=== PATIENT | male | born 1985 | race African-American/Black ===

== ENCOUNTER 2017-05-17 12:53 | Day surgery (SDC) | payer OTHER ==
[~2017-05-17] VITALS: Ht 170.2 cm; Wt 95.0 kg
[~2017-05-17 12:53] MED LIST: BALANCED SALT IRRIG SOLN 15ML ONE; BUPIVACAINE HCL/PF 0.75% (7.5MG/ML) 10ML ONE; CIPROFLOXACIN 0.3% OPHTH SOLN 2.5ML ONE; LIDOCAINE HCL 2%/EPINEPHRINE 1:100,000 20 ML VIAL INFIL ONE; LIDOCAINE HCL/PF 2% 20 MG/ML 10ML VIAL ONE; NEO/POLYMYX B SULF/DEXAMETH OPHTH OINT 3.5GM ONE; PREDNISOLONE ACETATE 1% OPHTH DROPS 1ML ONE; TETRACAINE 0.5% OPHTH DROPS 4ML ONE
[2017-05-17 15:10] LABS: BASOPHILS % 0.5 % (0.0-2.0); EOSINOPHILS % 2.2 % (0.0-5.0); HEMATOCRIT. 48.7 % (42.0-52.0); HEMOGLOBIN. 16.5 g/dL (14.0-18.0); LYMPHOCYTES % 24.2 % (20.0-50.0); MEAN CORPUSCULAR HEMOGLOBIN 31.6 pg (28.0-32.0); MEAN CORPUSCULAR VOLUME 93.3 fL (80.0-94.0); MEAN PLATELET VOLUME 7.2 fl (7.4-10.4); MONOCYTES % 7.8 % (2.0-8.0); NEUTROPHILS % 65.3 % (40.0-76.0); PLATELET 263 x1000/uL (130-400); RED BLOOD CELL COUNT 5.22 mill/uL (4.7-6.1); RED CELL DISTRIBUTION WIDTH 13.4 % (11.6-14.6)
[2017-05-17 15:18] LABS: PROTHROMBIN TIME 10.8 sec (9.4-11.6)
[2017-05-17 15:21] LABS: CARBON DIOXIDE 25 mEq/L (21-32); CHLORIDE 107 mEq/L (98-107)
[2017-05-17] MEDS ORDERED: HYALURONATE SODIUM 14 MG/ML 0.85ML SYRINGE IO ONE (16:21)
[2017-05-17 16:44] VITALS: BP 124/77
[2017-05-17] MEDS ORDERED: TRIAMCINOLONE ACETONIDE 40MG/ML 1ML VIAL ONE (17:01)
[2017-05-17] MEDS ORDERED: FENTANYL CITRATE/PF 50MCG/ML 2ML VIAL ONE (17:35)
[2017-05-17] MEDS ORDERED: LIDOCAINE HCL/PF 1% 10 MG/ML 5ML VIAL ONE (17:36)
[2017-05-17] MEDS ORDERED: MIDAZOLAM HCL 2 MG/2 ML VIAL ONE (17:36)
[2017-05-17] MEDS ORDERED: PROPOFOL 200MG/20ML VIAL IV ONE (17:36)
[2017-05-17] MEDS ORDERED: DIPHENHYDRAMINE 50MG/ML VIAL ONE (17:36)
[2017-05-17] MEDS ORDERED: SODIUM CHLORIDE 0.9% 10ML VIAL ONE (17:46)
[2017-05-17] MEDS ORDERED: CEFAZOLIN SODIUM 1000MG/VIAL ONE (17:46)
[2017-05-17] MEDS ORDERED: ONDANSETRON HCL 4MG/2ML VIAL ONE (18:11)
== END 2017-05-17 19:50 | disposition home or self-care (01) ==
LOC: ER 14:10 → OR 17:22 → CANBEDREQ 22:35
PROVIDERS: ATTEND Ophthalmology
DX: H40.10X0 Unspecified open-angle glaucoma, stage unspecified (principal); R79.1 Abnormal coagulation profile
CPT/HCPCS: 36415; 66183; 80053; 85025; 85610; 93005; 99285; A4216; C1783; J0690; J1200; J2250; J2405; J3010; J3301; J3490; J2704

== ENCOUNTER → 2017-07-23 | Day surgery (SDC) | payer OTHER ==
[~2017-07-23] VITALS: Ht 172.7 cm; Wt 93.0 kg
[~2017-07-23] MED LIST changes: +AZOPT RIGHTEYE; +BRIM10DR2 RIGHTEYE; +FENTANYL CITRATE/PF 50MCG/ML 2ML VIAL ONE; +HYALURONATE SODIUM 14 MG/ML 0.85ML SYRINGE IO ONE; +HYDROMORPHONE HCL/PF 2MG/ML CPJ IV PRN; +LABETALOL HCL 5MG/ML VIAL 20ML IV PRN; +LACTATED RINGERS 1,000 ML IV SCH; +LIDOCAINE HCL/PF 1% 10 MG/ML 5ML VIAL ONE; +MEPERIDINE HCL/PF 25MG/ML CPJ IV PRN; +METH50TA5 PO; +MIDAZOLAM HCL 2 MG/2 ML VIAL ONE; +ONDANSETRON HCL 4MG/2ML VIAL IV PRN; +PROPOFOL 200MG/20ML VIAL IV ONE; +TRAV2.5D RIGHTEYE; +TRIAMCINOLONE ACETONIDE 40MG/ML 1ML VIAL ONE; +TRYPAN BLUE 0.5 ML DISP.SYRIN IO ONE
== END | disposition home or self-care (01) ==
LOC: OR 06:26
PROVIDERS: ATTEND Ophthalmology
DX: H40.89 Other specified glaucoma (principal)
CPT/HCPCS: 66183; 94660; J2250; J3010; J3301; J3490; J7120; J2704; Q9957

== ENCOUNTER 2017-09-10 10:00 | Day surgery (SDC) | payer OTHER ==
[~2017-09-10] VITALS: Ht 172.7 cm; Wt 92.0 kg
[~2017-09-10 10:00] MED LIST changes: -BALANCED SALT IRRIG SOLN 15ML ONE; -BUPIVACAINE HCL/PF 0.75% (7.5MG/ML) 10ML ONE; -CIPROFLOXACIN 0.3% OPHTH SOLN 2.5ML ONE; -FENTANYL CITRATE/PF 50MCG/ML 2ML VIAL ONE; -HYALURONATE SODIUM 14 MG/ML 0.85ML SYRINGE IO ONE; -HYDROMORPHONE HCL/PF 2MG/ML CPJ IV PRN; -LABETALOL HCL 5MG/ML VIAL 20ML IV PRN; -LACTATED RINGERS 1,000 ML IV SCH; -LIDOCAINE HCL 2%/EPINEPHRINE 1:100,000 20 ML VIAL INFIL ONE; -LIDOCAINE HCL/PF 1% 10 MG/ML 5ML VIAL ONE; -LIDOCAINE HCL/PF 2% 20 MG/ML 10ML VIAL ONE; -MEPERIDINE HCL/PF 25MG/ML CPJ IV PRN; -MIDAZOLAM HCL 2 MG/2 ML VIAL ONE; -NEO/POLYMYX B SULF/DEXAMETH OPHTH OINT 3.5GM ONE; -ONDANSETRON HCL 4MG/2ML VIAL IV PRN; -PREDNISOLONE ACETATE 1% OPHTH DROPS 1ML ONE; -PROPOFOL 200MG/20ML VIAL IV ONE; -TETRACAINE 0.5% OPHTH DROPS 4ML ONE; -TRIAMCINOLONE ACETONIDE 40MG/ML 1ML VIAL ONE; -TRYPAN BLUE 0.5 ML DISP.SYRIN IO ONE
[2017-09-10 10:45] VITALS: BP 129/87
[2017-09-10 11:21] LABS: BASOPHILS % 0.3 % (0.0-2.0); EOSINOPHILS % 1.3 % (0.0-5.0); HEMATOCRIT. 43.7 % (42.0-52.0); HEMOGLOBIN. 15.5 g/dL (14.0-18.0); LYMPHOCYTES % 20.8 % (20.0-50.0); MEAN CORPUSCULAR HEMOGLOBIN 32.7 pg (28.0-32.0); MEAN PLATELET VOLUME 6.8 fl (7.4-10.4); MONOCYTES % 7.5 % (2.0-8.0); NEUTROPHILS % 70.1 % (40.0-76.0); PLATELET 337 x1000/uL (130-400); RED BLOOD CELL COUNT 4.75 mill/uL (4.7-6.1); RED CELL DISTRIBUTION WIDTH 13.2 % (11.6-14.6)
[2017-09-10 11:27] LABS: CHLORIDE 106 mEq/L (98-107); INR 1.1; PROTHROMBIN TIME 11.1 sec (9.4-11.6)
[2017-09-10] MEDS ORDERED: FENTANYL CITRATE/PF 50MCG/ML 2ML VIAL ONE (11:54)
[2017-09-10] MEDS ORDERED: MIDAZOLAM HCL 2 MG/2 ML VIAL ONE (11:54)
[2017-09-10] MEDS ORDERED: PROPOFOL 10MG/ML 100ML 100 ML IV ONE (11:57)
[2017-09-10] MEDS ORDERED: ONDANSETRON HCL 4MG/2ML VIAL IV PRN (12:15)
[2017-09-10] MEDS ORDERED: HYDROMORPHONE HCL/PF 2MG/ML CPJ IV PRN (12:15)
[2017-09-10] MEDS ORDERED: LABETALOL 5MG/ML SYR 20 MG/4 ML SYRINGE IV PRN (12:15)
[2017-09-10] MEDS ORDERED: MEPERIDINE HCL/PF 25MG/ML CPJ IV PRN (12:15)
[2017-09-10] MEDS ORDERED: TRAV2.5D RIGHTEYE (14:48)
[2017-09-10] MEDS ORDERED: AZOPT RIGHTEYE (14:48)
[2017-09-10] MEDS ORDERED: BRIM15DR2 RIGHTEYE (14:48)
[2017-09-10] MEDS ORDERED: METH50TA5 PO (14:48)
[2017-09-10] MEDS ORDERED: LIDOCAINE HCL 2%/EPINEPHRINE 1:100,000 20 ML VIAL INFIL ONE (15:12)
[2017-09-10] MEDS ORDERED: BALANCED SALT IRRIG SOLN 15ML ONE (15:12)
[2017-09-10] MEDS ORDERED: BUPIVACAINE HCL/PF 0.75% (7.5MG/ML) 10ML ONE (15:12)
[2017-09-10] MEDS ORDERED: PREDNISOLONE ACETATE 1% OPHTH DROPS 1ML ONE (15:12)
[2017-09-10] MEDS ORDERED: NEO/POLYMYX B SULF/DEXAMETH OPHTH OINT 3.5GM ONE (15:12)
[2017-09-10] MEDS ORDERED: CIPROFLOXACIN 0.3% OPHTH SOLN 2.5ML ONE (15:12)
== END 2017-09-10 12:35 | disposition home or self-care (01) ==
LOC: ER 11:02 → OR 11:40 → CANBEDREQ 18:29
PROVIDERS: ATTEND Ophthalmology
DX: T85.398A Other mechanical complication of other ocular prosthetic devices, implants and grafts, initial encounter (principal); Z98.890 Other specified postprocedural states; H40.89 Other specified glaucoma; Z79.899 Other long term (current) drug therapy; R94.39 Abnormal result of other cardiovascular function study; Y83.1 Surgical operation with implant of artificial internal device as the cause of abnormal reaction of the patient, or of later complication, without mention of misadventure at the time of the procedure
CPT/HCPCS: 36415; 66184; 80053; 85025; 85610; 86850; 86900; 86901; 93005; 99285; J2250; J2704; J3010; J3490

== ENCOUNTER 2017-09-18 13:34 | Day surgery (SDC) | payer OTHER ==
[~2017-09-18] VITALS: Ht 172.7 cm; Wt 91.0 kg
[~2017-09-18 13:34] MED LIST changes: +BRIM15DR2 RIGHTEYE
[2017-09-18 13:47] VITALS: BP 155/90
[2017-09-18] MEDS ORDERED: PRED1TAB PO (13:52)
[2017-09-18] MEDS ORDERED: NEO/3.5O OP (13:52)
[2017-09-18] MEDS ORDERED: CIPR500S4 PO (13:52)
[2017-09-18] MEDS ORDERED: LATA2.5D2 EACHEYE (13:52)
[2017-09-18] MEDS ORDERED: MIDAZOLAM HCL 2 MG/2 ML VIAL ONE (14:29)
[2017-09-18] MEDS ORDERED: LIDOCAINE HCL 2%/EPINEPHRINE 1:100,000 20 ML VIAL INFIL ONE (14:34)
[2017-09-18] MEDS ORDERED: BALANCED SALT IRRIG SOLN 15ML ONE (14:34)
[2017-09-18] MEDS ORDERED: PREDNISOLONE ACETATE 1% OPHTH DROPS 1ML ONE (14:34)
[2017-09-18] MEDS ORDERED: CIPROFLOXACIN 0.3% OPHTH SOLN 2.5ML ONE (14:34)
[2017-09-18] MEDS ORDERED: NEO/POLYMYX B SULF/DEXAMETH OPHTH OINT 3.5GM ONE (14:34)
[2017-09-18] MEDS ORDERED: BUPIVACAINE HCL/PF 0.75% (7.5MG/ML) 10ML ONE (14:34)
[2017-09-18] MEDS ORDERED: NEOSTIGMINE METHYLSULFATE 1MG/ML 10 ML VIAL ONE (14:36)
[2017-09-18] MEDS ORDERED: FENTANYL CITRATE/PF 50MCG/ML 2ML VIAL ONE (14:36)
[2017-09-18] MEDS ORDERED: ROCURONIUM BROMIDE 10MG/ML VIAL 5ML IV ONE (14:37)
[2017-09-18] MEDS ORDERED: ONDANSETRON HCL 4MG/2ML VIAL ONE (14:37)
[2017-09-18] MEDS ORDERED: SUCCINYLCHOLINE CHLORIDE 200MG/10ML VIAL IV ONE (14:37)
[2017-09-18] MEDS ORDERED: PROPOFOL 200MG/20ML VIAL IV ONE (14:37)
[2017-09-18] MEDS ORDERED: METOCLOPRAMIDE HCL 10MG/2ML VIAL ONE (14:37)
[2017-09-18] MEDS ORDERED: GLYCOPYRROLATE 0.2 MG/ML 2ML VIAL ONE (14:37)
[2017-09-18] MEDS ORDERED: LIDOCAINE HCL/PF 1% 10 MG/ML 5ML VIAL ONE (14:37)
[2017-09-18] MEDS ORDERED: CEFAZOLIN SODIUM 1000MG/VIAL ONE (15:00)
[2017-09-18] MEDS ORDERED: TRIAMCINOLONE ACETONIDE 40MG/ML 1ML VIAL ONE (15:17)
[2017-09-18] MEDS ORDERED: FENTANYL CITRATE/PF 50MCG/ML 2ML VIAL IV PRN (16:00)
[2017-09-19] MEDS ORDERED: MEDICATION NOT ON FORMULARY EA OP NR ×2 (16:30→17:00)
[2017-09-19] MEDS ORDERED: CEFTAZIDIME PENTAHYDRATE 1G/VIAL IR ONE (16:30)
[2017-09-19] MEDS ORDERED: VANCOMYCIN HCL 500 MG/VIAL OP ONE (16:30)
[2017-09-19] MEDS ORDERED: PROPOFOL 200MG/20ML VIAL IV ONE ×2 (16:59→17:40)
[2017-09-19] MEDS ORDERED: LIDOCAINE HCL/PF 1% 10 MG/ML 5ML VIAL ONE (17:41)
== END 2017-09-18 17:25 | disposition home or self-care (01) ==
LOC: ER 13:55 → ORIP 13:56 → UNDOADMOB 13:56 → INTOOBSV 13:56 → OR 15:55 → UNDODISOB 17:25
PROVIDERS: ATTEND Ophthalmology
DX: T85.898A Other specified complication of other internal prosthetic devices, implants and grafts, initial encounter (principal); H44.001 Unspecified purulent endophthalmitis, right eye; Y83.8 Other surgical procedures as the cause of abnormal reaction of the patient, or of later complication, without mention of misadventure at the time of the procedure; Y92.89 Other specified places as the place of occurrence of the external cause; H40.9 Unspecified glaucoma
CPT/HCPCS: 87070; 87075; 87077; 87205; 99285; G0378; J0330; J0690; J0713; J2250; J2405; J2704; J2710; J2765; J3010; J3301; J3370; J3490

== ENCOUNTER 2017-09-19 15:33 | Day surgery (SDC) | payer OTHER ==
[~2017-09-19] VITALS: Ht 172.7 cm; Wt 93.0 kg
[~2017-09-19 15:33] MED LIST changes: +CIPR500S4 PO; +LATA2.5D2 EACHEYE; +NEO/3.5O OP; +PRED1TAB PO
[2017-09-19] MEDS ORDERED: ACETAZOLAMIDE SODIUM 500MG/VIAL IV ONE ×2 (16:15→17:26)
[2017-09-19 16:18] VITALS: BP 134/92
[2017-09-19] MEDS ORDERED: ACETAZOLAMIDE SODIUM 500MG/VIAL IV NR (17:15)
[2017-09-19] MEDS ORDERED: CIPROFLOXACIN 0.3% OPHTH SOLN 2.5ML ONE (17:34)
[2017-09-19] MEDS ORDERED: PREDNISOLONE ACETATE 1% OPHTH DROPS 1ML ONE (17:34)
[2017-09-19] MEDS ORDERED: NEO/POLYMYX B SULF/DEXAMETH OPHTH OINT 3.5GM ONE (17:34)
[2017-09-19] MEDS ORDERED: TETRACAINE 0.5% OPHTH DROPS 4ML ONE (17:34)
[2017-09-19] MEDS ORDERED: BALANCED SALT IRRIG SOLN 15ML ONE (17:34)
[2017-09-19] MEDS ORDERED: ONDANSETRON HCL 4MG/2ML VIAL IV ONE (18:00)
[2017-09-19] MEDS ORDERED: ACETAMINOPHEN 325MG TABLET PO NR (19:45)
== END 2017-09-19 20:05 | disposition home or self-care (01) ==
LOC: ER 16:58 → OR 16:58 → ER 18:00 → OR 18:05 → CANBEDREQ 18:08 → OR 20:05
PROVIDERS: ATTEND Ophthalmology
DX: H44.003 Unspecified purulent endophthalmitis, bilateral (principal); H40.9 Unspecified glaucoma; Z79.899 Other long term (current) drug therapy; Z98.890 Other specified postprocedural states
CPT/HCPCS: 67028; 99285; J1120

== ENCOUNTER 2018-01-31 10:23 | Day surgery (SDC) | payer MEDICAID ==
[2018-01-31] MEDS ORDERED: TRIAMCINOLONE ACETONIDE 40MG/ML 1ML VIAL ONE (12:53)
[2018-01-31] MEDS ORDERED: HYALURONATE SODIUM 14 MG/ML 0.85ML SYRINGE IO ONE ×2 (12:53→13:29)
[2018-01-31] MEDS ORDERED: MIDAZOLAM HCL 2 MG/2 ML VIAL ONE (12:56)
[2018-01-31] MEDS ORDERED: PROPOFOL 200MG/20ML VIAL IV ONE (13:00)
[2018-01-31] MEDS ORDERED: LIDOCAINE HCL/PF 1% 10 MG/ML 5ML VIAL ONE (13:10)
[2018-01-31] MEDS ORDERED: SODIUM CHLORIDE 0.9% 1,000 ML IV ONE (13:20)
[2018-01-31] MEDS ORDERED: ONDANSETRON HCL 4MG/2ML INJ ONE (13:22)
[2018-01-31] MEDS ORDERED: METOCLOPRAMIDE HCL 10MG/2ML VIAL ONE (13:22)
[2018-01-31] MEDS ORDERED: ONDANSETRON HCL 4MG/2ML INJ IV PRN (13:30)
[2018-01-31] MEDS ORDERED: IBUPROFEN 600MG TABLET PO NR (13:30)
[2018-01-31] MEDS ORDERED: HYDROMORPHONE HCL/PF 2MG/ML CPJ IV PRN (13:30)
[2018-01-31] MEDS ORDERED: CIPR2.5D9 RIGHTEYE (14:24)
[2018-01-31] MEDS ORDERED: NETA2.5D RIGHTEYE (14:26)
[2018-01-31] MEDS ORDERED: LIDOCAINE HCL/PF 2% 20 MG/ML 10ML VIAL ONE (15:10)
[2018-01-31] MEDS ORDERED: LIDOCAINE HCL 2%/EPINEPHRINE 1:100,000 20 ML VIAL INFIL ONE (15:10)
[2018-01-31] MEDS ORDERED: PREDNISOLONE ACETATE 1% OPHTH DROPS 1ML ONE (15:10)
[2018-01-31] MEDS ORDERED: BUPIVACAINE HCL/PF 0.75% (7.5MG/ML) 10ML ONE (15:10)
[2018-01-31] MEDS ORDERED: NEO/POLYMYX B SULF/DEXAMETH OPHTH OINT 3.5GM ONE (15:10)
[2018-01-31] MEDS ORDERED: OFLOXACIN 0.3% OPHTH SOLN 5ML ONE (15:10)
[2018-01-31] MEDS ORDERED: BALANCED SALT IRRIG SOLN 15ML ONE (15:10)
[2018-01-31] MEDS ORDERED: TETRACAINE 0.5% OPHTH DROPS 4ML ONE (15:10)
== END 2018-01-31 15:30 | disposition home or self-care (01) ==
LOC: OR 10:23
PROVIDERS: ATTEND Ophthalmology
DX: H40.89 Other specified glaucoma (principal); Z79.899 Other long term (current) drug therapy; Z98.890 Other specified postprocedural states
CPT/HCPCS: 66170; J2250; J2405; J2765; J3490; J7030; J2704; J3301

== ENCOUNTER 2018-04-29 09:17 | Day surgery (SDC) | payer MEDICAID ==
[~2018-04-29] VITALS: Ht 172.7 cm; Wt 95.3 kg
[~2018-04-29 09:17] MED LIST changes: -AZOPT RIGHTEYE; -BRIM15DR2 RIGHTEYE; +CIPR2.5D9 RIGHTEYE; -CIPR500S4 PO; +CYCLOPENTOLATE HCL 1% OPHTH DROPS 2ML RIGHTEYE ONE; -LATA2.5D2 EACHEYE; -NEO/3.5O OP; +NETA2.5D RIGHTEYE; +PHENYLEPHRINE HCL 10% OPHTH DROPS 5ML RIGHTEYE ONE; -PRED1TAB PO; +TROPICAMIDE 1% OPHTH DROPS 15ML RIGHTEYE ONE
[2018-04-29] MEDS ORDERED: LACTATED RINGERS 1,000 ML IV SCH (09:30)
[2018-04-29] MEDS ORDERED: NEO/POLYMYX B SULF/DEXAMETH OPHTH OINT 3.5GM ONE (10:42)
[2018-04-29] MEDS ORDERED: PREDNISOLONE ACETATE 1% OPHTH DROPS 1ML ONE (10:42)
[2018-04-29] MEDS ORDERED: CIPROFLOXACIN 0.3% OPHTH SOLN 2.5ML ONE (10:42)
[2018-04-29] MEDS ORDERED: BALANCED SALT IRRIG SOLN 15ML ONE (10:42)
[2018-04-29] MEDS ORDERED: LIDOCAINE HCL/PF 2% 20 MG/ML 10ML VIAL ONE (10:42)
[2018-04-29] MEDS ORDERED: BALANCED SALT IRRIG SOLN COMB1 500ML OP SCH (11:00)
[2018-04-29] MEDS ORDERED: MIDAZOLAM HCL 2 MG/2 ML VIAL ONE ×2 (12:18→12:32)
[2018-04-29] MEDS ORDERED: FENTANYL CITRATE/PF 50MCG/ML 2ML VIAL ONE ×2 (12:18→12:32)
[2018-04-29] MEDS ORDERED: SODIUM CHLORIDE 0.9% 10ML VIAL ONE (12:19)
[2018-04-29] MEDS ORDERED: CEFAZOLIN SODIUM 1000MG/VIAL ONE (12:19)
[2018-04-29] MEDS ORDERED: HYALURONATE SODIUM 14 MG/ML 0.85ML SYRINGE IO ONE ×2 (12:23→12:54)
[2018-04-29] MEDS ORDERED: ONDANSETRON HCL 4MG/2ML INJ IV PRN (12:30)
[2018-04-29] MEDS ORDERED: LABETALOL HCL 20MG/4ML CARPUJECT IV PRN (12:30)
[2018-04-29] MEDS ORDERED: MEPERIDINE HCL/PF 25MG/ML CPJ IV PRN (12:30)
[2018-04-29] MEDS ORDERED: HYDROMORPHONE HCL/PF 2MG/ML CPJ IV PRN (12:30)
== END 2018-04-29 14:45 | disposition home or self-care (01) ==
LOC: OR 09:17
PROVIDERS: ATTEND Ophthalmology
DX: H25.89 Other age-related cataract (principal); F32.9 Major depressive disorder, single episode, unspecified; Z79.899 Other long term (current) drug therapy; Z79.01 Long term (current) use of anticoagulants
CPT/HCPCS: 66984; A4216; J0690; J2250; J3010; J3490; V2632

== ENCOUNTER 2021-03-23 12:16 | Day surgery (SDC) | payer MEDICAID ==
[~2021-03-23] VITALS: Ht 170.2 cm; Wt 107.0 kg
[~2021-03-23 12:16] MED LIST changes: +CIPR2.5D13 RIGHTEYE; -CIPR2.5D9 RIGHTEYE; -CYCLOPENTOLATE HCL 1% OPHTH DROPS 2ML RIGHTEYE ONE; -PHENYLEPHRINE HCL 10% OPHTH DROPS 5ML RIGHTEYE ONE; -TRAV2.5D RIGHTEYE; +TRAV2.5D9 RIGHTEYE; -TROPICAMIDE 1% OPHTH DROPS 15ML RIGHTEYE ONE
[2021-03-23 12:17] VITALS: BP 137/83
[2021-03-23] MEDS ORDERED: ACETAZOLAMIDE SODIUM 500MG/VIAL IV ONE (12:30)
[2021-03-23 12:36] LABS: BASOPHILS % 0.4 % (0.0-2.0); EOSINOPHILS % 2.6 % (0.0-5.0); HEMATOCRIT. 48.9 % (42.0-52.0); HEMOGLOBIN. 16.4 g/dL (14.0-18.0); LYMPHOCYTES % 31.3 % (20.0-50.0); MEAN CORPUSCULAR HEMOGLOBIN 31.4 pg (28.0-32.0); MEAN CORPUSCULAR VOLUME 93.3 fL (80.0-94.0); MEAN PLATELET VOLUME 7.1 fl (7.4-10.4); MONOCYTES % 8.4 % (2.0-8.0); NEUTROPHILS % 57.3 % (40.0-76.0); PLATELET 301 x1000/uL (130-400); RED BLOOD CELL COUNT 5.24 mill/uL (4.7-6.1); RED CELL DISTRIBUTION WIDTH 13.8 % (11.6-14.6)
[2021-03-23 12:42] LABS: CHLORIDE 109 mEq/L (98-107)
[2021-03-23] MEDS ORDERED: TRIAMCINOLONE ACETONIDE 40MG/ML 1ML VIAL ONE (13:20)
[2021-03-23] MEDS ORDERED: PROPOFOL 200MG/20ML VIAL IV ONE (13:22)
[2021-03-23] MEDS ORDERED: MIDAZOLAM HCL 2 MG/2 ML VIAL ONE (13:22)
[2021-03-23] MEDS ORDERED: LIDOCAINE HCL 2%/EPINEPHRINE 1:100,000 20 ML VIAL INFIL ONE (13:53)
[2021-03-23] MEDS ORDERED: NEO/POLYMYX B SULF/DEXAMETH OPHTH OINT 3.5GM ONE (13:53)
[2021-03-23] MEDS ORDERED: TETRACAINE 0.5% OPHTH DROPS 4ML ONE (13:53)
[2021-03-23] MEDS ORDERED: BALANCED SALT IRRIG SOLN 15ML ONE (13:53)
[2021-03-23] MEDS ORDERED: PREDNISOLONE ACETATE 1% OPHTH DROPS 5ML ONE (13:53)
[2021-03-23] MEDS ORDERED: BUPIVACAINE HCL/PF 0.75% (7.5MG/ML) 10ML ONE (13:53)
[2021-03-23] MEDS ORDERED: LIDOCAINE HCL/PF 2% 20 MG/ML 10ML VIAL ONE (13:53)
[2021-03-23] MEDS ORDERED: CIPROFLOXACIN 0.3% OPHTH SOLN 2.5ML ONE (13:53)
[2021-03-23] MEDS ORDERED: CEFAZOLIN SODIUM 1000MG/VIAL ONE (14:00)
[2021-03-23] MEDS ORDERED: ACETAMINOPHEN 325MG TABLET PO ONE (15:45)
== END 2021-03-23 16:30 | disposition home or self-care (01) ==
LOC: ER 12:16 → OR 13:00 → ER 13:24 → OR 16:30
PROVIDERS: ATTEND Ophthalmology
DX: H40.9 Unspecified glaucoma (principal); I10 Essential (primary) hypertension; Z79.899 Other long term (current) drug therapy; Z98.890 Other specified postprocedural states; Z20.822 Contact with and (suspected) exposure to COVID-19
CPT/HCPCS: 36415; 66180; 80053; 85025; 87426; 93005; 99284; J0690; J1120; J2250; J2704; J3301; J3490; C1762; C1783